=== PATIENT | male | born 1950 | race Caucasian/White ===

== ENCOUNTER 2022-04-08 17:55 | Emergency (ER) | payer MEDICARE, OTHER ==
[~2022-04-08] VITALS: Ht 180.3 cm; Wt 102.1 kg
--- NOTE | 2022-04-08 19:17 | NUR ---
PATIENT ARRIVED AT THE ER WITH CC OF LEFT FOOT SWELLING. PATIENT [id number]. IN NO ACUTE DISTRESS.
[2022-04-08 19:29] LABS: HEMATOCRIT 38.7 % (36.7-47.1); MEAN CORPUSCULAR HEMOGLOBIN 30.2 uug (23.8-33.4); MEAN CORPUSCULAR VOLUME 88.4 fL (73.0-96.2); PLATELET COUNT (AUTO) 225 K/uL (152-348)
[2022-04-08 19:32] LABS: CREATININE 0.9 mg/dL (0.6-1.3); POTASSIUM 3.6 mmol/L (3.5-5.1)
[2022-04-08 19:39] LABS: BILIRUBIN,DIRECT 0.2 mg/dL (0.0-0.2); BILIRUBIN,TOTAL 0.6 mg/dL (0.2-1.0); TOTAL PROTEIN, SERUM 6.7 g/dL (6.4-8.2)
--- NOTE | 2022-04-08 20:09 | NUR ---
Patient discharged to home in stable condition. Written and verbal after care instructions given. Patient verbalizes understanding of instructions. Stressed follow up or return to ER for worsening s/s. Patient ambulated fr the ER with steady gait. All belongings with patient.
[2022-04-08 20:10] VITALS: BP 128/75
== END 2022-04-08 20:10 | disposition home or self-care (01) ==
LOC: ER 18:02
DX: R60.0 Localized edema (principal); R73.03 Prediabetes
CPT/HCPCS: 36415; 83735; 85025; A4663